=== PATIENT | male | born 1995 | race Hispanic/Latino ===

== ENCOUNTER 2017-11-21 22:54 | Emergency (ER) | payer BC ==
[~2017-11-21] VITALS: Ht 170.2 cm; Wt 85.3 kg
[~2017-11-21 22:54] MED LIST: KEPPRA XR500 MG PO; KEPPRA500 MG PO
[2017-11-21] MEDS ORDERED: PHENYTOIN SODI100 MG PO (23:48)
[2017-11-22] MEDS ORDERED: KEPPRA XR500 MG PO (00:09)
== END 2017-11-22 00:48 | disposition home or self-care (01) ==
LOC: ED 22:54
DX: R56.9 Unspecified convulsions (principal); Z87.891 Personal history of nicotine dependence; Z91.02 Food additives allergy status; Z79.899 Other long term (current) drug therapy
CPT/HCPCS: 80053; 80185; 83735; 85025; 96374; 99283; J1953; J7030

== ENCOUNTER 2023-08-24 21:25 | Emergency (ER) | payer OTHER ==
[~2023-08-24] VITALS: Ht 170.2 cm; Wt 139.0 kg
[~2023-08-24 21:25] MED LIST changes: +LEVAQUIN500 MG PO; +NORCO 5-325 TA1 EACH PO; +PHENYTOIN SODI100 MG PO
[2023-08-24] MEDS ORDERED: LACTATED RINGER'S 1,000 ML IV ONE (21:45)
[2023-08-24] MEDS ORDERED: HYDROmorphone HCL 1 MG/ML SYR IV PRN (21:45)
[2023-08-24] MEDS ORDERED: TRANEXAMIC ACID IN NACL,ISO-OS 1,000 MG/100 ML PIGGYBACK IV ONE (21:45)
[2023-08-24 21:54] LABS: BASOPHILS 0.9 % (0-2); EOSINOPHILS 0.2 % (0-6); HEMATOCRIT 40.6 % (35.0-50.0); HEMOGLOBIN 13.4 g/dL (12.0-18.0); LYMPHOCYTES 10.4 % (24-44); MCH 29.7 (27-36); MCV 89.8 fl (81-99); NEUTROPHILS 82.5 % (39-80); PLATELET COUNT 394 K/uL (140-440); RBC 4.52 M/ul (4.3-5.7); RDW 14.7 (10.5-15.0)
[2023-08-24 22:06] LABS: ALBUMIN 3.4 g/dL (3.4-5.0); ALBUMIN/GLOBULIN RATIO 0.81 (1.1-2.4); ANION GAP 14.6 (7-21); BILIRUBIN, TOTAL 0.4 ng/dL (0.2-1.0); BUN/CREATININE RATIO 10.9 (6.0-28.6); CALCIUM 8.4 mg/dL (8.5-10.1); CREATININE, SERUM 1.1 mg/dL (0.70-1.30); POTASSIUM 3.6 mmol/L (3.5-5.1); PROTEIN, TOTAL 7.6 g/dL (6.4-8.2)
[2023-08-24] MEDS ORDERED: DIPHTH,PERTUSS(ACELL),TET VAC 0.5 ML SYRINGE IM ONE (22:15)
[2023-08-24 22:21] LABS: ABO A; RH POSITIVE
[2023-08-24 22:22] LABS: ANTIBODY SCREEN NEGATIVE
[2023-08-24] MEDS ORDERED: NALOXONE HCL 0.4 MG SYR IV ONE (23:15)
[2023-08-24] MEDS ORDERED: CEPHALEXIN MONOHYDRATE 500 MG HOME.PACK PO ONE (23:45)
[2023-08-24] MEDS ORDERED: CEPHALEXIN500 M1 PO (23:45)
[2023-08-24] MEDS ORDERED: TRAMADOL HCL 50 MG HOME.PACK PO ONE (23:45)
[2023-08-24 23:47] LABS: AMPHETAMINES, URINE POSITIVE (NEGATIVE); BARBITURATES, URINE NEGATIVE (NEGATIVE); BENZODIAZEPINE, URINE NEGATIVE (NEGATIVE); BUPRENORPHINE, URINE NEGATIVE (NEGATIVE); CANNABINOID, URINE NEGATIVE (NEGATIVE); COCAINE, URINE NEGATIVE (NEGATIVE); ECSTASY, URINE NEGATIVE (NEGATIVE); METHADONE, URINE NEGATIVE (NEGATIVE); OPIATES, URINE NEGATIVE (NEGATIVE); OXYCODONE, URINE NEGATIVE (NEGATIVE); PHENCYCLIDINE, URINE NEGATIVE (NEGATIVE)
[2023-08-25] MEDS ORDERED: CEPHALEXIN MONOHYDRATE 500 MG HOME.PACK PO ONE (00:45)
[2023-08-25 02:00] VITALS: BP 106/69
== END 2023-08-25 02:00 | disposition home or self-care (01) ==
LOC: ED 21:25
PROVIDERS: Family Medicine
DX: S51.811A Laceration without foreign body of right forearm, initial encounter (principal); W26.0XXA Contact with knife, initial encounter; Z23 Encounter for immunization; Z91.013 Allergy to seafood; Z87.891 Personal history of nicotine dependence
CPT/HCPCS: 12034; 36415; 80053; 80307; 85025; 86850; 86900; 86901; 90471; 90715; 99283-25; A9270; J1170; J2310; J7121

== ENCOUNTER 2024-11-19 18:52 | Emergency (ER) | payer OTHER ==
[~2024-11-19] VITALS: Ht 170.2 cm; Wt 89.8 kg
[~2024-11-19 18:52] MED LIST changes: +CEPHALEXIN500 M1 PO
[2024-11-19] MEDS ORDERED: KETOROLAC TROMETHAMINE 60 MG/2 ML VIAL IM ONE (20:00)
[2024-11-19 20:44] LABS: AMPHETAMINES, URINE POSITIVE (NEGATIVE); BARBITURATES, URINE NEGATIVE (NEGATIVE); BENZODIAZEPINE, URINE NEGATIVE (NEGATIVE); BUPRENORPHINE, URINE NEGATIVE (NEGATIVE); CANNABINOID, URINE NEGATIVE (NEGATIVE); COCAINE, URINE NEGATIVE (NEGATIVE); ECSTASY, URINE NEGATIVE (NEGATIVE); FENTANYL, URINE NEGATIVE (NEGATIVE); METHADONE, URINE NEGATIVE (NEGATIVE); OPIATES, URINE NEGATIVE (NEGATIVE); OXYCODONE, URINE NEGATIVE (NEGATIVE); PHENCYCLIDINE, URINE NEGATIVE (NEGATIVE)
[2024-11-19 20:49] LABS: HEMATOCRIT 43.5 % (35.0-50.0); HEMOGLOBIN 14.2 g/dL (12.0-18.0); MCH 28.3 (27-36); MCHC 32.5 g/dl (30-36); MCV 86.9 fl (81-99); PH, VENOUS 7.285 (7.31-7.41); PLATELET COUNT 401 K/uL (140-440); RDW 16.5 (10.5-15.0)
[2024-11-19 20:56] LABS: EOSINOPHILS, MANUAL DIFF 2; LYMPHOCYTES, MANUAL DIFF 9; MONOCYTES, MANUAL DIFF 7; NEUTROPHILS, MANUAL DIFF 82
[2024-11-19 21:10] LABS: ALBUMIN 3.2 g/dL (3.4-5.0); ALBUMIN/GLOBULIN RATIO 0.74 (1.1-2.4); BILIRUBIN, TOTAL 0.4 mg/dL (0.2-1.0); BUN/CREATININE RATIO 20.54 (6.0-28.6); CALCIUM 8.8 mg/dL (8.5-10.1); CREATININE, SERUM 0.73 mg/dL (0.70-1.30); PROTEIN, TOTAL 7.5 g/dL (6.4-8.2)
[2024-11-19] MEDS ORDERED: CELEBREX100 MG PO (21:28)
[2024-11-19 21:53] VITALS: BP 110/89
== END 2024-11-19 21:55 | disposition home or self-care (01) ==
LOC: ED 18:52
PROVIDERS: Family Medicine
DX: S82.832A Other fracture of upper and lower end of left fibula, initial encounter for closed fracture (principal); E87.1 Hypo-osmolality and hyponatremia; G47.30 Sleep apnea, unspecified; F15.10 Other stimulant abuse, uncomplicated; Z87.891 Personal history of nicotine dependence; Z91.013 Allergy to seafood; W19.XXXA Unspecified fall, initial encounter
CPT/HCPCS: 36415; 73610; 80053; 80307; 82803; 85025; 96372; 99283; J1885